=== PATIENT | female | born 1990 | race Hispanic/Latino ===

== ENCOUNTER 2024-07-06 00:01 | Inpatient (IN) | payer SELFPAY ==
[2024-07-06 01:05] LABS: #Basophils 0.05 10x3/uL (0.0-0.2); #Eosinophils Less than 0.03 10x3/uL (0.0-0.7); %Basophils 0.4 % (0.0-1.0); %Lymphocytes 9.6 % (21.0-51.0); %Monocytes 5.6 % (0.0-10.0); Hematocrit 38.8 % (36.0-47.0); Hemoglobin 13.3 g/dL (12.0-16.0); Mean Corpuscular HGB CONC 34.3 g/dL (32.0-36.0); Mean Corpuscular Hemoglobin 29.2 pg (27.0-31.0); Mean Corpuscular Volume 85.1 fL (78.0-98.0); Platelet Count 239 10x3/uL (130-400); RBC Distribution Width 12.4 % (11.5-14.5); Red Blood Cell (RBC) Count 4.56 mill/uL (4.20-5.40)
[2024-07-06 01:28] LABS: ALT (SGPT) 43 U/L (8-55); AST (SGOT) 32 U/L (5-34); Albumin 3.9 g/dL (3.5-5.0); Alkaline Phosphatase 58 U/L (40-110); Anion Gap 13 mmol/L (10-20); BUN (Urea Nitrogen) 8 mg/dL (7.0-18.7); Bilirubin, Total 0.6 mg/dL (0.2-1.2); Calc. Creatinine Clearance 0 mL/min (70-130); Carbon Dioxide 23 mmol/L (22-29); Chloride 106 mmol/L (98-107); Estimated GFR 103; Globulin 4.3 g/dL (2.4-3.5); Glucose 110 mg/dL (70-105); Potassium 3.5 mmol/L (3.5-5.1); Protein, Total 8.2 g/dL (6.0-8.3); Sodium 138 mmol/L (136-145)
[2024-07-06 01:31] LABS: Troponin I 0.043 ng/mL (< 0.028)
[2024-07-06] MEDS ORDERED: Ketorolac Tromethamine 30 MG (1 mL) VIAL ONE (02:27)
[2024-07-06] MEDS ORDERED: Benzonatate 100 MG CAP ONE (02:27)
[2024-07-06] MEDS ORDERED: Aspirin Chewable 81 MG TAB ONE (02:27)
[2024-07-06 02:38] LABS: BHCG - Serum Negative (NEGATIVE); Pregs Control Background? CLEAR/WHITE (CLR/WHITE); Pregs Control Bar Appear? YES (CONTROL BAR)
[2024-07-06] MEDS ORDERED: Ondansetron PF 4 MG/2 ML Vial IVP PRN (04:23)
[2024-07-06 06:47] LABS: Troponin I 0.031 ng/mL (< 0.028)
[2024-07-06] MEDS: cefTRIAXone\\ROCEPHIN 1 GM in Sodium Chloride 0.9% 100 ML IVPB SCH (06:47)
[2024-07-06 07:29] LABS: Troponin I 0.041 ng/mL (< 0.028)
[2024-07-06] MEDS ORDERED: Lisinopril 10 MG TAB PO SCH (09:00)
[2024-07-06] MEDS ORDERED: Aspirin 325 MG TAB PO SCH (09:00)
[2024-07-06] MEDS: Doxycycline 100 MG in Sodium Chloride 0.9% 100 ML IVPB SCH (09:48)
[2024-07-06] MEDS: guaiFENesin/DM ER PO SCH (09:48)
[2024-07-06] MEDS: Sodium Chloride 0.9% 500 ML IV SCH (09:53)
[2024-07-06] MEDS: guaiFENesin/Codeine 200 mg/20 mg 10 ml Cup PO PRN (09:57)
[2024-07-06] MEDS: FLU (Fluarix Triv) TS24-25(6MOS UP)/PF 45 MCG/0.5 ML Syringe IM ONE (09:57)
[2024-07-06] MEDS: Acetaminophen 325 MG TAB PO PRN (14:51)
[2024-07-06] MEDS ORDERED: Iopamidol 370 76% 100 ML VIAL ONE (14:55)
[2024-07-06] MEDS: Fioricet 325/50/40 mg Tablet PO SCH (20:34)
[2024-07-06] MEDS: Doxycycline 100 MG CAP PO SCH (20:35)
[2024-07-07 05:32] LABS: #Basophils 0.03 10x3/uL (0.0-0.2); #Eosinophils Less than 0.03 10x3/uL (0.0-0.7); %Basophils 0.4 % (0.0-1.0); %Eosinophils 0.3 % (0.0-10.0); %Lymphocytes 27.8 % (21.0-51.0); %Monocytes 11.3 % (0.0-10.0); %Neutrophils 59.5 % (42.0-75.0); Hematocrit 33.5 % (36.0-47.0); Hemoglobin 11.3 g/dL (12.0-16.0); Mean Corpuscular HGB CONC 33.7 g/dL (32.0-36.0); Mean Corpuscular Hemoglobin 28.8 pg (27.0-31.0); Mean Corpuscular Volume 85.5 fL (78.0-98.0); Mean Platelet Volume 10.9 fL (7.4-10.4); Platelet Count 211 10x3/uL (130-400); RBC Distribution Width 12.4 % (11.5-14.5); Red Blood Cell (RBC) Count 3.92 mill/uL (4.20-5.40)
[2024-07-07] MEDS: cefTRIAXone\\ROCEPHIN 2 GM in Sodium Chloride 0.9% 100 ML IVPB SCH (06:00)
[2024-07-07 07:54] LABS: Anion Gap 10 mmol/L (10-20); BUN (Urea Nitrogen) 9 mg/dL (7.0-18.7); Calc. Creatinine Clearance 0 mL/min (70-130); Calcium 8.4 mg/dL (7.8-10.44); Carbon Dioxide 23 mmol/L (22-29); Chloride 106 mmol/L (98-107); Estimated GFR 119; Glucose 97 mg/dL (70-105); Potassium 3.3 mmol/L (3.5-5.1); Sodium 136 mmol/L (136-145)
[2024-07-07] MEDS: Potassium Chloride 20 MEQ TAB PO SCH (08:57)
[2024-07-07] MEDS: Aspirin Chewable 81 MG TAB PO SCH (11:07)
[2024-07-07 16:55] LABS: Legionella Urinary Ag Negative (Negative); Strep pneumo Urine Ag NEGATIVE (NEGATIVE)
[2024-07-08 05:28] LABS: #Basophils 0.03 10x3/uL (0.0-0.2); %Basophils 0.5 % (0.0-1.0); %Eosinophils 1.2 % (0.0-10.0); %Lymphocytes 34.7 % (21.0-51.0); %Monocytes 11.9 % (0.0-10.0); %Neutrophils 51.5 % (42.0-75.0); Hematocrit 34.4 % (36.0-47.0); Hemoglobin 11.5 g/dL (12.0-16.0); Mean Corpuscular HGB CONC 33.4 g/dL (32.0-36.0); Mean Corpuscular Hemoglobin 28.5 pg (27.0-31.0); Mean Corpuscular Volume 85.4 fL (78.0-98.0); Mean Platelet Volume 10.3 fL (7.4-10.4); Platelet Count 225 10x3/uL (130-400); RBC Distribution Width 12.3 % (11.5-14.5); Red Blood Cell (RBC) Count 4.03 mill/uL (4.20-5.40)
[2024-07-08 05:42] LABS: Anion Gap 13 mmol/L (10-20); BUN (Urea Nitrogen) 10 mg/dL (7.0-18.7); Calc. Creatinine Clearance 0 mL/min (70-130); Calcium 8.4 mg/dL (7.8-10.44); Carbon Dioxide 21 mmol/L (22-29); Chloride 107 mmol/L (98-107); Estimated GFR 119; Glucose 90 mg/dL (70-105); Potassium 3.8 mmol/L (3.5-5.1); Sodium 137 mmol/L (136-145)
[2024-07-08] MEDS: Aspirin Chewable 81 MG TAB PO SCH (08:53)
[2024-07-08] MEDS ORDERED: Aspirin Chewable 81 MG TAB PO SCH (09:00)
[2024-07-08 16:04] VITALS: BP 104/65; TEMP 98.6
== END 2024-07-08 17:18 | disposition home or self-care (01) | DRG 871 ==
LOC: ERS 00:01 → OBS 03:11 → OBSVTOIN 07-07 14:57
PROVIDERS: ADMIT Internal Medicine; ATTEND Hospitalist
DX: A41.9 Sepsis, unspecified organism (principal); J18.9 Pneumonia, unspecified organism; I5A Non-ischemic myocardial injury (non-traumatic); I50.20 Unspecified systolic (congestive) heart failure; I42.9 Cardiomyopathy, unspecified; Z86.73 Personal history of transient ischemic attack (TIA), and cerebral infarction without residual deficits; Z79.899 Other long term (current) drug therapy; Z79.82 Long term (current) use of aspirin; I25.2 Old myocardial infarction; Z95.1 Presence of aortocoronary bypass graft; I11.0 Hypertensive heart disease with heart failure; I35.0 Nonrheumatic aortic (valve) stenosis; Z87.891 Personal history of nicotine dependence
CPT/HCPCS: 36415; 71045; 71275; 80048; 80053; 83605; 83880; 84484; 84703; 85025; 86850; 86900; 86901; 87040; 87070; 87205; 87428; 87449; 87633; 87899; 90656; 93005; 93010; 93306; 96374; 96375; 96376; G0378; J0696; J1885; Q9967

== ENCOUNTER 2024-07-17 02:05 | Inpatient (IN) | payer SELFPAY ==
[2024-07-17 03:05] LABS: #Basophils 0.06 10x3/uL (0.0-0.2); %Basophils 0.4 % (0.0-1.0); %Eosinophils 1.7 % (0.0-10.0); %Lymphocytes 10.4 % (21.0-51.0); %Monocytes 7.5 % (0.0-10.0); %Neutrophils 79.4 % (42.0-75.0); Hematocrit 36.3 % (36.0-47.0); Mean Corpuscular HGB CONC 33.1 g/dL (32.0-36.0); Mean Corpuscular Hemoglobin 28.2 pg (27.0-31.0); Mean Corpuscular Volume 85.2 fL (78.0-98.0); Mean Platelet Volume 9.7 fL (7.4-10.4); Platelet Count 329 10x3/uL (130-400); RBC Distribution Width 12.8 % (11.5-14.5); Red Blood Cell (RBC) Count 4.26 mill/uL (4.20-5.40)
[2024-07-17 03:22] LABS: ALT (SGPT) 11 U/L (8-55); AST (SGOT) 14 U/L (5-34); Albumin 3.5 g/dL (3.5-5.0); Alkaline Phosphatase 49 U/L (40-110); Anion Gap 12 mmol/L (10-20); BUN (Urea Nitrogen) 10 mg/dL (7.0-18.7); Bilirubin, Total 0.3 mg/dL (0.2-1.2); Calc. Creatinine Clearance 0 mL/min (70-130); Calcium 8.4 mg/dL (7.8-10.44); Carbon Dioxide 21 mmol/L (22-29); Chloride 110 mmol/L (98-107); Estimated GFR 108; Globulin 3.4 g/dL (2.4-3.5); Glucose 109 mg/dL (70-105); Lipase 26 U/L (8-78); Potassium 4.1 mmol/L (3.5-5.1); Protein, Total 6.9 g/dL (6.0-8.3); Sodium 139 mmol/L (136-145)
[2024-07-17 03:27] LABS: Troponin I 0.061 ng/mL (< 0.028)
[2024-07-17] MEDS ORDERED: Aspirin Chewable 81 MG TAB ONE (04:10)
[2024-07-17] MEDS ORDERED: Sodium Chloride 0.9% 100 ML ONE (04:15)
[2024-07-17] MEDS ORDERED: Cefepime 2 GM VIAL ONE (04:15)
[2024-07-17] MEDS ORDERED: Ondansetron PF 4 MG/2 ML Vial IVP PRN ×2 (06:07→08:01)
[2024-07-17] MEDS ORDERED: Acetaminophen 325 MG TAB PO PRN ×2 (06:07→08:01)
[2024-07-17] MEDS ORDERED: Ondansetron ODT 4 MG TAB PO PRN ×2 (06:08→08:01)
[2024-07-17] MEDS ORDERED: Senokot S 8.6-50 MG TAB PO PRN (08:01)
[2024-07-17] MEDS ORDERED: Calcium Carbonate 500 MG ChewTAB PO PRN (08:01)
[2024-07-17] MEDS ORDERED: Acetaminophen 650 MG Suppository PR PRN (08:01)
[2024-07-17] MEDS ORDERED: GUAIFENESIN SF SOLN 200 MG/10 ML UDCUP PO PRN (09:22)
[2024-07-17 09:52] LABS: Magnesium 1.9 mg/dL (1.6-2.6)
[2024-07-17 10:00] LABS: Troponin I 0.054 ng/mL (< 0.028)
[2024-07-17] MEDS: Vancomycin (BATCH) 2 GM in Premix 1 BAG IVPB SCH (10:55)
[2024-07-17] MEDS: Doxycycline 100 MG CAP PO SCH (12:22)
[2024-07-17] MEDS: Enoxaparin 40 MG (0.4 mL) SYRINGE SC SCH (12:24)
[2024-07-17] MEDS: Ipratropium/Albuterol 3 ML NEB NEB SCH (14:32)
[2024-07-17 15:25] VITALS: BMI 30.8
[2024-07-17] MEDS: Vancomycin HCl 750 MG in Sodium Chloride 0.9% 250 ML 250 ML IVPB SCH (17:15)
[2024-07-17] MEDS: Cefepime 1 GM in Sodium Chloride 0.9% 100 ML IVPB SCH (18:21)
[2024-07-17 18:44] LABS: Strep pneumo Urine Ag NEGATIVE (NEGATIVE)
[2024-07-17 18:45] LABS: Legionella Urinary Ag Negative (Negative)
[2024-07-17] MEDS: guaiFENesin ER 600 MG TAB PO SCH (19:47)
[2024-07-17] MEDS: Pantoprazole 40 MG DR.TAB PO SCH (19:47)
[2024-07-17] MEDS: Benzonatate 100 MG CAP PO PRN (19:55)
[2024-07-17] MEDS ORDERED: Vancomycin 1 GM in Premix 1 BAG IVPB SCH (21:00)
[2024-07-18] MEDS: Cefepime 2 GM in Sodium Chloride 0.9% 100 ML IVPB SCH (00:21)
[2024-07-18] MEDS: Lactated Ringer's 500 ML IV SCH (04:22)
[2024-07-18 04:53] LABS: #Basophils 0.03 10x3/uL (0.0-0.2); %Basophils 0.4 % (0.0-1.0); %Eosinophils 2.9 % (0.0-10.0); %Lymphocytes 19.4 % (21.0-51.0); %Monocytes 11.2 % (0.0-10.0); %Neutrophils 65.7 % (42.0-75.0); Hematocrit 30.5 % (36.0-47.0); Hemoglobin 10.1 g/dL (12.0-16.0); Mean Corpuscular HGB CONC 33.1 g/dL (32.0-36.0); Mean Corpuscular Hemoglobin 28.9 pg (27.0-31.0); Mean Corpuscular Volume 87.4 fL (78.0-98.0); Mean Platelet Volume 9.9 fL (7.4-10.4); Platelet Count 241 10x3/uL (130-400); RBC Distribution Width 12.8 % (11.5-14.5); Red Blood Cell (RBC) Count 3.49 mill/uL (4.20-5.40)
[2024-07-18 05:04] LABS: Vancomycin, Random 18.3 ug/mL (See Comment)
[2024-07-18 05:08] LABS: ALT (SGPT) 8 U/L (8-55); AST (SGOT) 10 U/L (5-34); Alkaline Phosphatase 46 U/L (40-110); Anion Gap 12 mmol/L (10-20); BUN (Urea Nitrogen) 8 mg/dL (7.0-18.7); Bilirubin, Total 0.3 mg/dL (0.2-1.2); Calc. Creatinine Clearance 143 mL/min (70-130); Calcium 7.8 mg/dL (7.8-10.44); Carbon Dioxide 22 mmol/L (22-29); Chloride 110 mmol/L (98-107); Estimated GFR 118; Globulin 2.7 g/dL (2.4-3.5); Glucose 106 mg/dL (70-105); Potassium 3.7 mmol/L (3.5-5.1); Protein, Total 5.7 g/dL (6.0-8.3); Sodium 140 mmol/L (136-145)
[2024-07-18] MEDS: Aspirin 81 mg Enteric Coated Tablet PO SCH (08:52)
[2024-07-18] MEDS: Vancomycin 1 GM in Premix 1 BAG IVPB SCH (17:14)
[2024-07-18] MEDS: FLU (Fluarix Triv) TS24-25(6MOS UP)/PF 45 MCG/0.5 ML Syringe IM ONE (20:42)
[2024-07-19] MEDS: Ipratropium/Albuterol 3 ML NEB NEB PRN (00:46)
[2024-07-19 07:59] VITALS: BP 103/57; TEMP 98.1
[2024-07-19 08:08] LABS: #Basophils 0.03 10x3/uL (0.0-0.2); %Basophils 0.3 % (0.0-1.0); %Eosinophils 1.9 % (0.0-10.0); %Lymphocytes 17.4 % (21.0-51.0); %Monocytes 9.5 % (0.0-10.0); %Neutrophils 70.5 % (42.0-75.0); Hematocrit 32.3 % (36.0-47.0); Hemoglobin 10.7 g/dL (12.0-16.0); Mean Corpuscular HGB CONC 33.1 g/dL (32.0-36.0); Mean Corpuscular Hemoglobin 28.8 pg (27.0-31.0); Mean Corpuscular Volume 87.1 fL (78.0-98.0); Mean Platelet Volume 10.8 fL (7.4-10.4); Platelet Count 275 10x3/uL (130-400); Red Blood Cell (RBC) Count 3.71 mill/uL (4.20-5.40)
[2024-07-19 08:27] LABS: Anion Gap 12 mmol/L (10-20); BUN (Urea Nitrogen) 11 mg/dL (7.0-18.7); Calc. Creatinine Clearance 131 mL/min (70-130); Calcium 8.5 mg/dL (7.8-10.44); Carbon Dioxide 24 mmol/L (22-29); Chloride 107 mmol/L (98-107); Estimated GFR 116; Glucose 90 mg/dL (70-105); Potassium 3.5 mmol/L (3.5-5.1); Sodium 139 mmol/L (136-145)
[2024-07-19] MEDS: Aspirin Chewable 81 MG TAB PO SCH (08:27)
[2024-07-19] MEDS: Lisinopril 10 MG TAB PO SCH (08:27)
[2024-07-20 22:08] LABS: Mycoplasma pneumoniae IgG AB 737 U/mL (0-99); Mycoplasma pneumoniae IgM AB 1004 U/mL (0-769)
== END 2024-07-19 11:47 | disposition home or self-care (01) | DRG 194 ==
LOC: ERS 02:05 → ERHOLD 05:54 → OBS 08:21 → OBSVTOIN 07-18 18:27
PROVIDERS: ADMIT Internal Medicine; ATTEND Family Medicine
DX: J18.9 Pneumonia, unspecified organism (principal); I50.22 Chronic systolic (congestive) heart failure; I35.0 Nonrheumatic aortic (valve) stenosis; I11.0 Hypertensive heart disease with heart failure; Z86.73 Personal history of transient ischemic attack (TIA), and cerebral infarction without residual deficits; Z79.82 Long term (current) use of aspirin; Z79.899 Other long term (current) drug therapy
CPT/HCPCS: 36415; 71046; 80048; 80053; 80202; 83605; 83690; 83735; 83880; 84145; 84484; 85025; 85379; 87040; 87081; 87428; 87449; 87899; 93005; 94640; 96372; 96374; 96375; 96376; G0378; J0692; J1650; J3370; J7050; J7620